=== PATIENT | female | born 1955 | race Caucasian/White ===

== ENCOUNTER → 2017-07-29 | Outpatient (CLI) | payer BC ==
[~2017-07-29] MED LIST: AMT10 PO; BUPR150T6 PO; BUTACAP7 PO; GLUC500C4 PO; MILK175C3 PO; MISCCAP80 PO; MULT-506 PO; NATURAL PO; SERT-234 PO; SYN137 PO; VNTHFA/IN INH
--- NOTE | 2017-07-30 12:47 | MAMMOGRAPHY REPORT ---
BILATERAL DIGITAL SCREENING MAMMOGRAM TOMOSYNTHESIS WITH CAD: 07/29/2017 CLINICAL HISTORY: Routine screening. Patient has no complaints. TECHNIQUE: Breast tomosynthesis in addition to standard 2D mammography was performed. Current study was also evaluated with a Computer Aided Detection (CAD) system. COMPARISON: Comparison is made to exams dated: 03/07/2008, 01/05/2014 mammogram, 12/29/2012 mammogram, mammogram, 01/02/2010 mammogram, and 12/29/2008 mammogram - [facility]. Also prior outside mammograms dated 04/10/2016. BREAST COMPOSITION: The tissue of both breasts is heterogeneously dense, which may obscure small mas ses. FINDINGS: No suspicious masses, calcifications, or areas of architectural distortion are noted in ei ther breast. There has been no significant interval change compared to prior exams. Scattered bilater al benign-appearing calcifications are not significantly changed. A linear scar marker denotes a sca r on the left upper outer breast. IMPRESSION: ACR BI-RADS CATEGORY 2: BENIGN There is no mammographic evidence of malignancy. A 1 year screening mammogram is recommended. The pa tient will receive written notification of the results. Approximately 10% of breast cancers are not detected with mammography. A negative mammographic report should not delay biopsy if a clinically suggestive mass is present. Coco Marcus M.D. /:07/29/2017 15:41:08 Manager Trading: Riddhi EPSTEIN)([place]), [facility] letter sent: Normal 1/2 BI-RADS Code: ACR BI-RADS Category 2: Benign
== END | disposition home or self-care (01) ==
LOC: C.MAMM 15:17
PROVIDERS: ATTEND Internal Medicine
DX: Z12.31 Encounter for screening mammogram for malignant neoplasm of breast (principal)

== ENCOUNTER → 2017-07-29 | Outpatient (CLI) | payer BC ==
[2017-07-29 17:12] LABS: BLOOD UREA NITROGEN 24 mg/dl (7-18); CREATININE 0.86 mg/dl (0.60-1.20)
== END | disposition home or self-care (01) ==
LOC: C.LAB1850 15:45
PROVIDERS: ATTEND Obstetrics & Gynecology
DX: Z01.818 Encounter for other preprocedural examination (principal)

== ENCOUNTER → 2017-08-06 | Outpatient (CLI) | payer BC ==
[~2017-08-06] MED LIST changes: +GADAVIST IV PRN
--- NOTE | 2017-08-07 15:09 | MAMMOGRAPHY REPORT ---
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 Dense breasts mammographically. COMPARISON: Comparison is made to exams dated: 01/05/2014 mammogram - [facility] 07/29/2017 mammogram - [facility], 12/29/2012 mammogram, 12/17/2011 mammogram, 2009 mammogram, and 12/29/2008 mammogram - [facility]. Technique: The patient was placed prone in a dedicated breast imaging coil. Precontrast axial T1-maria c ghted, axial T2-weighted fat saturation, and axial T1-weighted fat saturation images were obtained. After the administration of 6 mL of Gadavist IV contrast, sequential T1-weighted fat saturation image s were obtained. Subtraction images were obtained of the dynamic contrast enhanced sequences, and 3- D reformations were performed. The [employer] software was used for kinetic analysis. Findings: Right breast: There is mild background parenchymal enhancement. There are no suspicious enhancing ma sses or areas of abnormal non-mass enhancement within the right breast. Left breast: There is mild background parenchymal enhancement. There is a 7 mm linear area of non-ma ss enhancement within the left 12:00 breast middle depth, which demonstrates a persistent kinetic pat tern (series [id number] image 73 and series 6 image 29). Additionally, there is a similar-appearing but m ore prominent 9 mm linear area of non-mass enhancement slightly more superior in the left 12:00 breas t middle depth, which demonstrates a mixed plateau and persistent kinetic pattern (series [id number] image 66 and series 6 image 28). The 2 areas of enhancement are approximately 6 mm apart on the sagittal images. Given the linear distribution, the two areas are indeterminate for malignancy such as DCIS. The findings are unlikely to be seen on second look ultrasound. Therefore, recommend MRI guided bio psy for further evaluation. There is no evidence of axillary adenopathy. The chest wall structures are negative. Visualized por tions of extramammary soft tissues are grossly unremarkable. IMPRESSION: ACR BI-RADS CATEGORY 4: SUSPICIOUS 1. Two 7 and 9 mm linear areas of non-mass enhancement in the left 12:00 breast. The findings are in determinate for malignancy such as DCIS, therefore, MRI guided core needle biopsy 2 is recommended f or further evaluation. If both areas cannot be biopsied concurrently, then would recommend biopsy of the most prominent area (the more superior finding) and management of the other finding could be bas ed on the pathology results. 2. No MRI evidence of malignancy in the right breast. A phone call was made to the physician's office to confirm faxed results were received. Coco Marcus M.D. ah/:08/06/2017 16:18:49 Vmware Administrator: wrapper leaf inspector, [facility] letter sent: Abnormal 4/5 BI-RADS Code: ACR BI-RADS Category 4: Suspicious
== END | disposition home or self-care (01) ==
LOC: C.MRI 11:46
PROVIDERS: ATTEND Obstetrics & Gynecology
DX: N60.99 Unspecified benign mammary dysplasia of unspecified breast (principal); R92.2 Inconclusive mammogram

== ENCOUNTER → 2017-08-19 | Outpatient (CLI) | payer BC ==
[~2017-08-19] MED LIST changes: +LIDO/EPINEPHRINE/SOD BICARB 20 ML VIAL INFIL ONE; +XYLOCAINE 1%/SOD BICARB 20 ML VIAL INFIL ONE
--- NOTE | 2017-08-19 12:10 | Discharge Instructions ---
Discharge Instructions Procedure Procedure Date: Aug 19, 2017. Reason for visit: Left Non-Mass Enhancements. Discharge Discharge Date: Aug 19, 2017. Discharge Diagnosis: status post breast biopsy Instructions Activity Recommendations: Additional Limitations (see below) Return to School/Work: no limitations Recommended Home Diet: No Limitations Provider Instructions: ACTIVITY RECOMMENDATIONS: * No lifting, pushing, pulling or exercising the affected side for three days. RETURN TO SCHOOL/WORK: * You may return to work/school after the procedure, but do not perform any strenuous activities for 24 to 48 hours. MEDICATIONS: * Tylenol (two 325 mg) every four to six hours if needed for mild pain (if not allergic to Tylenol). DIET: * Resume previous diet. SPECIAL CARE INSTRUCTIONS: * Keep biopsy site dry for 24 hours. May shower after 24 hours, but do not soak (bathe) incision. * May remove Tegaderm (plastic patch) tomorrow AFTER showering. * Leave the steri-strips on for one week. Allow the steri-strips to fall off by themselves. If not off after one week, you may remove them. You may place a Bandaid crosswise over the strips, if desired. * Apply ice 10 minutes on and 10 minutes off as needed. * Wear a bra at bedtime to sleep more comfortably for 2-3 days. * Your referring physician should have the results after approximately 5 to 7 business days. * Call for unusual bleeding, fever, drainage, etc or if you have any questions call during normal business hours or after hours call Dr Marcus, [phone]. FOLLOW UP VISIT: Follow-up with Referring Physician as scheduled. Allergies Coded Allergies: No Known Allergies (Unverified , 06/19/16) Radha León Recommendations: Call your doctor if: * Temperature above 101 degrees * Pain not relieved by pain medicine ordered * There is increased drainage or redness from any incision * You have any unanswered questions or concerns. Your Doctors Instructions noted above were prepared by provider Coco Marcus. Patient Signature Section: Patient Instructions Signature Page Mary Ellen Hester Patient (or Guardian) Signature/Date: I have read and understand the instructions given to me by my caregivers. Caregiver/RN/Doctor Signature/Date: The above-named patient and/or guardian has received patient instructions on this date. + Original Patient Signature Page (only) stays with chart. Please make copy for patient.
--- NOTE | 2017-08-19 15:38 | MAMMOGRAPHY REPORT ---
MRI BIOPSY LEFT BREAST: 08/19/2017 CLINICAL HISTORY: Two linear areas of non-mass enhancement in the left 12 o'clock breast seen on rece nt breast MRI. COMPARISON: Comparison is made to exams dated: 08/06/2017 breast MRI, 07/29/2017 mammogram - [facility], 01/05/2014 mammogram, 12/17/2011 mammogram, 01/02/2010 mammogram, and 12/29/2012 mammog [facility]. Technique: Written informed consent was obtained from the patient after discussion of the procedure a s well as risks of MRI guided core needle biopsy. A preprocedural timeout was performed prior to sta rting the procedure. The patient was placed prone on a 1.5 Rosina MR scanner. The lateral aspect of the left breast was cl eansed with ChloraPrep. The left breast was positioned in a dedicated breast coil and MRI guidance g rid device. After localizing sequences were obtained, pre-and postcontrast axial sequences were performed which c onfirm the persistence of the 2 areas of linear non-mass enhancement in the left 12:00 breast. 6 cc Gadavist IV contrast was administered. Using the images, targeting was performed using the [employer]. After targeting was performed, it was determined that it is not possible to biopsy both lesio ns at the same time as the lesions localize to two adjacent grid squares, and the two grid boxes luis antonio ot be placed next to each other. Therefore, the decision was made to biopsy the most prominent lesio n more superior in the left breast. The skin was prepped with Betadine through the grid and after local anesthesia was achieved, an intro ducer sheath and localizing obturator were placed into the site using a lateral approach. The locati on of the obturator sheath was confirmed with additional images. After the images were performed, th e patient complained of nausea and had some vomiting episodes. Given the patient's symptoms and give n the significant movement of the breast, the obturator sheath was removed and the compression was re moved from the breast. After a few minutes, the patient symptoms resolved and she desired to proceed with the procedure. Therefore, repeat imaging was obtained to see if any enhancement was still pres ent. Faint enhancement was still seen in this region, therefore, re-targeting was performed. Anothe r introducer sheath and localizing obturator were placed into the site using a lateral approach. The location of the obturator was confirmed with additional images. Subsequently, multiple samples were obtained from the site using a Suros 9-gauge vacuum-assisted core biopsy device. Postprocedural images demonstrate postbiopsy changes in the expected location of the enhancing lesion. Through the introducer sheath, a marker clip was placed. Direct pressure was hel d at the biopsy site until hemostasis was achieved. The patient tolerated the procedure without immediate complication. Mammography was obtained at the breast center after completion of the biopsy to confirm marker clip placement. [facility] for further details. The specimens were sent to pathology for analysis. Wo und care instructions were given to the patient. IMPRESSION: MRI BIOPSY 1. MRI guided core needle biopsy of the most prominent linear area of non-mass enhancement in the le ft 12:00 breast, with clip placement. The patient will receive pathology results from her referring provider. 2. The other less prominent linear area of enhancement in the left 12:00 breast more inferiorly coul d not be sampled at the same time due to the close proximity of the two lesions. Management of this area will be based on the pathology results of the biopsied lesion. Once pathology results are revie wed, an addendum will be made to this report. Coco Marcus M.D. ah/:08/19/2017 13:30:06 Behavior Interventionist: quality assurance representative, [facility]
--- NOTE | 2017-08-19 15:42 | MAMMOGRAPHY REPORT ---
UNILATERAL LEFT DIGITAL DIAGNOSTIC MAMMOGRAM TOMOSYNTHESIS: 08/19/2017 CLINICAL HISTORY: Status post left breast MRI guided biopsy. TECHNIQUE: Breast tomosynthesis in addition to standard 2D mammography was performed. Post procedur al left CC and ML tomosynthesis images including C views were obtained. COMPARISON: Comparison is made to exams dated: 08/19/2017 MRI biopsy, 08/06/2017 breast MRI, 07/29/2017 mammogram - [facility], 01/05/2014 mammogram, 12/[facility]2012 mamm[facility] BREAST COMPOSITION: The tissue of the left breast is heterogeneously dense, which may obscure small masses. FINDINGS: A new biopsy marker clip is seen at the site of the biopsied linear non-mass enhancement i n the left central/12:00 breast. No significant postbiopsy hematoma is seen. IMPRESSION: POST PROCEDURE IMAGING FOR MARKER PLACEMENT New biopsy marker clip status post left breast MRI guided biopsy. Pathology results are pending. Approximately 10% of breast cancers are not detected with mammography. A negative mammographic report should not delay biopsy if a clinically suggestive mass is present. Coco Marcus M.D. /:08/19/2017 12:40:57 Finish Production Manager: Riddhi Aguilar, [facility] BI-RADS Code: Post Procedure Imaging For Marker Placement
== END | disposition home or self-care (01) ==
LOC: C.MRI 10:10
PROVIDERS: ATTEND Obstetrics & Gynecology
DX: R92.8 Other abnormal and inconclusive findings on diagnostic imaging of breast (principal); N60.12 Diffuse cystic mastopathy of left breast